=== PATIENT | female | born 1950 | race Caucasian/White ===

== ENCOUNTER → 2023-07-12 10:56 | Outpatient (REF) | payer MEDICARE, OTHER, SELFPAY | LOC: RAD 10:56 | PROVIDERS: ATTENDING PHYSICIAN Family Medicine | DX: R74.8 Abnormal levels of other serum enzymes (principal); R50.9 Fever, unspecified; N28.9 Disorder of kidney and ureter, unspecified; K75.81 Nonalcoholic steatohepatitis (NASH); E11.39 Type 2 diabetes mellitus with other diabetic ophthalmic complication; I12.9 Hypertensive chronic kidney disease with stage 1 through stage 4 chronic kidney disease, or unspecified chronic kidney disease | CPT/HCPCS: 71046; 76700 ==

== ENCOUNTER → 2023-08-23 12:34 | Outpatient (REF) | payer MEDICARE, OTHER, SELFPAY | LOC: RAD 12:34 | PROVIDERS: ATTENDING PHYSICIAN Physician Assistant | DX: M79.604 Pain in right leg (principal); M79.89 Other specified soft tissue disorders; T14.90XA Injury, unspecified, initial encounter | CPT/HCPCS: 73590; 73610 ==

== ENCOUNTER → 2023-09-13 07:07 | Outpatient (REF) | payer MEDICARE, OTHER, SELFPAY | LOC: MRI 07:07 | PROVIDERS: ATTENDING PHYSICIAN Physician Assistant; FAMILY PHYSICIAN Family Medicine | DX: M79.604 Pain in right leg (principal); S80.11XD Contusion of right lower leg, subsequent encounter; S81.811D Laceration without foreign body, right lower leg, subsequent encounter | CPT/HCPCS: 73718 ==

== ENCOUNTER → 2023-09-17 12:42 | Outpatient (REF) | payer MEDICARE, OTHER, SELFPAY | LOC: WOUND 12:42 | PROVIDERS: ATTENDING PHYSICIAN Surgery; FAMILY PHYSICIAN Family Medicine | DX: L97.812 Non-pressure chronic ulcer of other part of right lower leg with fat layer exposed (principal); S81.811A Laceration without foreign body, right lower leg, initial encounter; E11.39 Type 2 diabetes mellitus with other diabetic ophthalmic complication; E11.22 Type 2 diabetes mellitus with diabetic chronic kidney disease; E11.9 Type 2 diabetes mellitus without complications | CPT/HCPCS: 11042; 99204 ==

== ENCOUNTER → 2023-09-24 13:48 | Outpatient (REF) | payer MEDICARE, OTHER, SELFPAY | LOC: WOUND 13:48 | PROVIDERS: ATTENDING PHYSICIAN Surgery; FAMILY PHYSICIAN Family Medicine | DX: L97.812 Non-pressure chronic ulcer of other part of right lower leg with fat layer exposed (principal); S81.811S Laceration without foreign body, right lower leg, sequela; X58.XXXS Exposure to other specified factors, sequela; E11.39 Type 2 diabetes mellitus with other diabetic ophthalmic complication; E11.22 Type 2 diabetes mellitus with diabetic chronic kidney disease; N18.31 Chronic kidney disease, stage 3a | CPT/HCPCS: 11042; 11043 ==

== ENCOUNTER → 2023-09-30 13:37 | Outpatient (REF) | payer MEDICARE, OTHER, SELFPAY | LOC: WOUND 13:37 | PROVIDERS: ATTENDING PHYSICIAN Surgery; FAMILY PHYSICIAN Family Medicine | DX: L97.812 Non-pressure chronic ulcer of other part of right lower leg with fat layer exposed (principal); S81.811A Laceration without foreign body, right lower leg, initial encounter; X58.XXXA Exposure to other specified factors, initial encounter; E11.39 Type 2 diabetes mellitus with other diabetic ophthalmic complication; E11.22 Type 2 diabetes mellitus with diabetic chronic kidney disease; N18.31 Chronic kidney disease, stage 3a | CPT/HCPCS: 11042 ==

== ENCOUNTER → 2023-10-08 13:36 | Outpatient (REF) | payer MEDICARE, OTHER, SELFPAY | LOC: WOUND 13:36 | PROVIDERS: ATTENDING PHYSICIAN Surgery; FAMILY PHYSICIAN Family Medicine | DX: L97.812 Non-pressure chronic ulcer of other part of right lower leg with fat layer exposed (principal); S81.811A Laceration without foreign body, right lower leg, initial encounter; E11.39 Type 2 diabetes mellitus with other diabetic ophthalmic complication; E11.22 Type 2 diabetes mellitus with diabetic chronic kidney disease; N18.31 Chronic kidney disease, stage 3a; W22.8XXA Striking against or struck by other objects, initial encounter | CPT/HCPCS: 11042 ==

== ENCOUNTER → 2023-10-18 08:41 | Outpatient (REF) | payer MEDICARE, OTHER, SELFPAY | LOC: WOUND 08:41 | PROVIDERS: ATTENDING PHYSICIAN Surgery; FAMILY PHYSICIAN Family Medicine | DX: L97.812 Non-pressure chronic ulcer of other part of right lower leg with fat layer exposed (principal); S81.811A Laceration without foreign body, right lower leg, initial encounter; E11.39 Type 2 diabetes mellitus with other diabetic ophthalmic complication; E11.22 Type 2 diabetes mellitus with diabetic chronic kidney disease; N18.31 Chronic kidney disease, stage 3a; W22.8XXA Striking against or struck by other objects, initial encounter | CPT/HCPCS: 11042 ==

== ENCOUNTER → 2023-10-22 13:40 | Outpatient (REF) | payer MEDICARE, OTHER, SELFPAY | LOC: WOUND 13:40 | PROVIDERS: ATTENDING PHYSICIAN Surgery; FAMILY PHYSICIAN Family Medicine | DX: L97.812 Non-pressure chronic ulcer of other part of right lower leg with fat layer exposed (principal); S81.811A Laceration without foreign body, right lower leg, initial encounter; E11.39 Type 2 diabetes mellitus with other diabetic ophthalmic complication; E11.22 Type 2 diabetes mellitus with diabetic chronic kidney disease; N18.31 Chronic kidney disease, stage 3a; W22.8XXA Striking against or struck by other objects, initial encounter | CPT/HCPCS: 11042 ==

== ENCOUNTER → 2023-10-31 13:01 | Outpatient (REF) | payer MEDICARE, OTHER, SELFPAY | LOC: WOUND 13:01 | PROVIDERS: ATTENDING PHYSICIAN Surgery; FAMILY PHYSICIAN Family Medicine | DX: L97.812 Non-pressure chronic ulcer of other part of right lower leg with fat layer exposed (principal); S81.811A Laceration without foreign body, right lower leg, initial encounter; E11.22 Type 2 diabetes mellitus with diabetic chronic kidney disease; E11.39 Type 2 diabetes mellitus with other diabetic ophthalmic complication; N18.31 Chronic kidney disease, stage 3a; W22.8XXA Striking against or struck by other objects, initial encounter | CPT/HCPCS: 99213 ==

== ENCOUNTER → 2023-10-31 18:56 | Outpatient (REF) | payer MEDICARE, OTHER, SELFPAY | LOC: WDC 18:56 | PROVIDERS: ATTENDING PHYSICIAN Family Medicine | DX: Z12.31 Encounter for screening mammogram for malignant neoplasm of breast (principal) | CPT/HCPCS: 77063; 77067 ==

== ENCOUNTER → 2023-11-05 13:10 | Outpatient (REF) | payer MEDICARE, OTHER, SELFPAY | LOC: WOUND 13:10 | PROVIDERS: ATTENDING PHYSICIAN Surgery; FAMILY PHYSICIAN Family Medicine | DX: L97.812 Non-pressure chronic ulcer of other part of right lower leg with fat layer exposed (principal); S81.811A Laceration without foreign body, right lower leg, initial encounter; E11.39 Type 2 diabetes mellitus with other diabetic ophthalmic complication; E11.22 Type 2 diabetes mellitus with diabetic chronic kidney disease; N18.31 Chronic kidney disease, stage 3a | CPT/HCPCS: 99212 ==

== ENCOUNTER → 2023-11-18 13:41 | Outpatient (REF) | payer MEDICARE, OTHER, SELFPAY | LOC: WOUND 13:41 | PROVIDERS: ATTENDING PHYSICIAN Surgery; FAMILY PHYSICIAN Family Medicine | DX: L97.812 Non-pressure chronic ulcer of other part of right lower leg with fat layer exposed (principal); S81.811A Laceration without foreign body, right lower leg, initial encounter; E11.39 Type 2 diabetes mellitus with other diabetic ophthalmic complication; E11.22 Type 2 diabetes mellitus with diabetic chronic kidney disease; N18.31 Chronic kidney disease, stage 3a | CPT/HCPCS: 99212 ==

== ENCOUNTER → 2024-01-02 06:21 | Day surgery (SDC) | payer MEDICARE, OTHER, SELFPAY ==
[2024-01-02 08:32] LABS: Glucose - Point of Care 114 mg/dl (70-99)
== END ==
LOC: GI 06:21
PROVIDERS: ATTENDING PHYSICIAN Internal Medicine Gastroenterology; FAMILY PHYSICIAN Family Medicine
DX: Z12.11 Encounter for screening for malignant neoplasm of colon (principal); K57.30 Diverticulosis of large intestine without perforation or abscess without bleeding; K64.8 Other hemorrhoids; D12.0 Benign neoplasm of cecum; D12.2 Benign neoplasm of ascending colon; D12.3 Benign neoplasm of transverse colon; R12 Heartburn; R13.14 Dysphagia, pharyngoesophageal phase; Q39.9 Congenital malformation of esophagus, unspecified; K31.89 Other diseases of stomach and duodenum; K31.7 Polyp of stomach and duodenum; K22.89 Other specified disease of esophagus; K31.A11 Gastric intestinal metaplasia without dysplasia, involving the antrum; Z86.010 Personal history of colon polyps; Z80.0 Family history of malignant neoplasm of digestive organs
CPT/HCPCS: 45385; 43239; 88305; 82962; 88342

== ENCOUNTER 2024-02-27 06:18 | Day surgery (SDC) | payer MEDICARE, OTHER, SELFPAY ==
[2024-02-27 07:19] LABS: Glucose - Point of Care 162 mg/dl (70-99)
[2024-02-27 07:32] VITALS: BMI 32.4
[2024-02-27 07:34] VITALS: BMI 32.4
[2024-02-27 07:35] VITALS: BP 147/76
[2024-02-27 09:00] VITALS: BP 126/78
[2024-02-27 09:15] VITALS: BP 138/61
== END 2024-02-27 09:50 | disposition home or self-care (01) ==
LOC: GI 06:18
PROVIDERS: ATTENDING PHYSICIAN Internal Medicine Gastroenterology
DX: K31.89 Other diseases of stomach and duodenum (principal); K31.A0 Gastric intestinal metaplasia, unspecified; K25.9 Gastric ulcer, unspecified as acute or chronic, without hemorrhage or perforation
CPT/HCPCS: 43237; 43251; 88305; 82962; 88342